=== PATIENT | male | born 1995 | race Caucasian/White ===

== ENCOUNTER 2025-02-26 19:54 | Emergency (ER) | payer BC, SELFPAY ==
[2025-02-26 20:07] VITALS: BP 113/83; PULSE 70; RESP 18; TEMP 36.7; O2SAT 100; BMI 41.1
[2025-02-26 20:35] VITALS: BP 134/100; PULSE 89; RESP 16; O2SAT 100
--- NOTE | 2025-02-26 20:42 | CTR_ITS ---
PROCEDURE INFORMATION: Exam: CT Abdomen And Pelvis With Contrast Exam date and time: 02/26/2025 9:00 PM Age: 29 years old Clinical indication: Abdominal pain; Generalized; Prior surgery; Surgery date: 6+ months; Surgery type: Gb; Additional info: Ruq pain, 4 years post cholecystectomy TECHNIQUE: Imaging protocol: Computed tomography of the abdomen and pelvis with contrast. Radiation optimization: All CT scans at this facility use at least one of these dose optimization techniques: automated exposure control; mA and/or kV adjustment per patient size (includes targeted exams where dose is matched to clinical indication); or iterative reconstruction. Contrast material: OMNIPAQUE 350; Contrast volume: 100 ml; Contrast route: INTRAVENOUS (IV); COMPARISON: No relevant prior studies available. RADIATION DOSE METRICS: Total DLP (mGy-cm): 1303.84 FINDINGS: Liver: Mild hepatic steatosis. The liver is enlarged, measuring 18.3 cm craniocaudal. Gallbladder and biliary ducts: Status post cholecystectomy. No biliary ductal dilatation. Pancreas: Fatty atrophy of the pancreas. No ductal dilatation. Spleen: Normal. No splenomegaly. 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 Kidneys and ureters: Normal. No hydronephrosis. Stomach and bowel: Unremarkable. No obstruction. No mucosal thickening. Appendix: No evidence of appendicitis. Intraperitoneal space: Unremarkable. No free air. No significant fluid collection. Vasculature: Unremarkable. No abdominal aortic aneurysm. Lymph nodes: Unremarkable. No enlarged lymph nodes. Urinary bladder: Unremarkable as visualized. Reproductive: Unremarkable as visualized. Bones/joints: Unremarkable. No acute fracture. Soft tissues: Bilateral fat containing inguinal hernias. CT/CT abdomen pelvis w con* [id number] IMPRESSION: 1. No acute findings in the abdomen/pelvis. 2. Mild hepatomegaly with hepatic steatosis. 3. Fatty atrophy of the pancreas.
[2025-02-26] MEDS: iohexol 350 mg/mL 500 mL Btl (per mL) IV (21:04)
[2025-02-26 21:05] LABS: Basophils % 0.3 %; Eosinophils # 0.1 10^3/uL (0.0-0.8); Eosinophils % 0.8 %; Lymphocytes # 2.8 10^3/uL (0.8-4.8); Lymphocytes % 27.5 %; Mean Corpuscular HGB Conc 33.4 g/dL (30-55); Mean Corpuscular Hemoglobin 26.9 pg (27-33); Mean Corpuscular Volume 80.5 fl (82-101); Mean Platelet Volume 10.1 fL (7.4-10.4); Monocytes # 0.8 10^3/uL (0.2-0.9); Monocytes % 7.7 %; Neutrophils # 6.37 10^3/uL (1.8-7.7); Neutrophils % 63.4 %; Nucleated Red Blood Cells % 0 %; Platelet Count 345 10^3/cmm (157-399); Red Blood Count 5.84 10^6/uL (3.85-5.65); Red Cell Distribution Width 13.6 % (12.1-15.1); White Blood Count 10.04 10^3/uL (3.29-11.43)
--- NOTE | 2025-02-26 21:21 | ED_ITS ---
HPI - Abdominal Pain 2 General: Chief Complaint: Abdominal Pain Stated Complaint: abdominal pain Time Seen by Provider: 02/26/25 20:33 History of Present Illness: Patient is a generally well-appearing 21-year-old male seen for right upper quadrant pain and 30 pounds unintentional weight loss. He states that several years ago he had his gallbladder removed but he still has pain in that right upper quadrant. It has been constant for the last several weeks. He said he decided to come the emergency department when he felt a lump in the right upper quadrant and wondered what it was. Pain is currently 8 of 10, throbbing, aching, but does not necessarily get worse with eating or drinking. He has no nausea or vomiting or diarrhea or fever or pain anywhere else in the abdomen. He states the right upper quadrant is tender to touch. He denies shortness of breath or chest pain. He has no other acute complaints. Related Data Allergies Allergy/AdvReac Type Severity Reaction Status Date / Time No Known Allergies Allergy Verified 02/26/25 20:12 Physical Exam 2 Const: COMMON NORMALS: no acute distress, patient oriented x3 and alert HENMT: COMMON NORMALS: normocephalic and atraumatic HEAD & SCALP: n ormocephalic and atraumatic Eye: COMMON NORMALS: Equal, round and reactive pupils present, EOMs intact bilaterally and no scleral icterus PUPIL: Yes Equal, round and reactive pupils present Resp: COMMON NORMALS: normal respiratory effort and No retractions Cardio: COMMON NORMALS: regular rate, regular rhythm and No murmurs present (Cardio) RATE: regular rate RHYTHM: regular rhythm GI: OTHER: Abdomen is soft and somewhat obese. Normal bowel sounds. Focal tenderness in the right upper quadrant. Negative [place] sign. I do not appreciate mass of the right upper quadrant as he states he feels. Neuro: COMMON NORMALS: patient oriented x3 SENSORIUM/ORIENTATION: Yes alert Skin: COMMON NORMALS: no rashes or lesions noted GENERAL SKIN EXAM: no rashes or lesions noted Course 2 Vital Signs: Vital signs: Vital Signs Temperature 98.0 F 02/26/25 20:07 Pulse Rate 78 02/26/25 23:08 Respiratory Rate 16 02/26/25 23:08 Blood Pressure 154/72 02/26/25 23:08 Pulse Oximetry 100 02/26/25 23:08 Oxygen Delivery Me thod Room Air 02/26/25 22:00 MDM - Abdominal Pain Medical Decision Making Patient remained hemodynamically stable throughout ED course. Labs and CT scan showed nothing acute. I do not suspect retained biliary duct stone, liver cancer, or any other emergent process warranting further workup at this time. His pain is not worse with eating or drinking. He will be discharged in stable condition follow-up primary care as needed. Lab Data 02/26/25 20:56 02/26/25 20:56 Labs/Radiology: Radiology Impressions Abdomen/Pelvis CT 02/26/25 20:42 IMPRESSION: 1. No acute findings in the abdomen/pelvis. 2. Mild hepatomegaly with hepatic steatosis. 3. Fatty atrophy of the pancreas. Laboratory Results WBC 10.04 10^3/uL (3.29-11.43) 02/26/25 20:56 RBC 5.84 10^6/uL (3.85-5.65) H 02/26/25 20:56 Hgb 15.70 g/dL (11.27-16.99) 02/26/25 20:56 Hct 47.0 % (37-53) 02/26/25 20:56 MCV 80.5 fl (82-101) L 02/26/25 20:56 MCH 26.9 pg (27-33) L 02/26/25 20:56 MCHC 33.4 g/dL (30-55) 02/26/25 20:56 RDW 13.6 % (12.1-15.1) 02/26/25 20:56 Plt Count 345 10^3/cmm (157-399) 02/26/25 20:56 MPV 10.1 fL (7.4-10.4) 02/26/25 20:56 Neut % (Auto) 63.4 % 02/26/25 20:56 Lymph % (Auto) 27.5 % 02/26/25 20:56 [place] % (Auto) 7.7 % 02/26/25 20:56 Eos % (Auto) 0.8 % 02/26/25 20:56 Baso % (Auto) 0.3 % 02/26/25 20:56 Neut # (Auto) 6.37 10^3/uL (1.8-7.7) 02/26/25 20:56 Lymph # (Auto) 2.8 10^3/uL (0.8-4.8) 02/26/25 20:56 [place] # (Auto) 0.8 10^3/uL (0.2-0.9) 02/26/25 20:56 Eos # (Auto) 0.1 10^3/uL (0.0-0.8) 02/26/25 20:56 Baso # (Auto) 0.0 10^3/uL (0.0-0.1) 02/26/25 20:56 Nucleated RBC % (auto) 0 % 02/26/25 20:56 Nucleated RBCs # 0.0 /100WBC 02/26/25 20:56 Sodium 136 mmol/L (136-145) 02/26/25 20:56 Potassium 3.4 mmol/L (3.5-5.1) L 02/26/25 20:56 Chloride 96 mmol/L (98-107) L 02/26/25 20:56 Carbon Dioxide 26 mmol/L (22-29) 02/26/25 20:56 Anion Gap 17.4 (5-19) 02/26/25 20:56 BUN 7 mg/dL (6-20) 02/26/25 20:56 Creatinine 0.7 mg/dL (0.7-1.2) 02/26/25 20:56 GFR Calculation 134.3 mL/min (90-130) H 02/26/25 20:56 Glucose 81 mg/dL (65-115) 02/26/25 20:56 Calculated Osmolality 279 mOsm/kg (285-295) L 02/26/25 20:56 Calcium 9.8 mg/dL (8.5-10.5) 02/26/25 20:56 Total Bilirubin 0.8 mg/dL (0.15-1.2) 02/26/25 20:56 AST 33 U/L (0-40) 02/26/25 20:56 ALT 64 U/L (0-41) H 02/26/25 20:56 Alkaline Phosphatase 103 U/L (40-130) 02/26/25 20:56 Total Protein 8.8 g/dL (6.6-8.7) H 02/26/25 20:56 Albumin 4.7 g/dL (3.5-5.2) 02/26/25 20:56 Globulin 4.1 g/dL (1.3-4.6) 02/26/25 20:56 Lipase 16 U/L (13-60) 02/26/25 20:56 All radiology interpretation(s) finalized by discharge Discharge Plan Discharge Patient Disposition: Home Clinical Impression: Abdominal pain, RUQ Condition: Stable Discharge Orders: Discharge ED (Routine); Ordered 02/26/25 Ordered By: Fazal Dawson Referrals: Polo Mcnally MD [Primary Care Provider] - Discharge Diet: Advance as tolerated Discharge Activity: Increase activity as tolerated Patient Instructions: Abdominal Pain (ED) Activity Restrictions/Additional Instructions: The liver measure 18.3 cm craniocaudal. Your liver enzymes today are very close to normal. Your blood work and CT scan did not show any evidence of acute process requiring hospitalization or surgery. There is no evidence of retained stone in the biliary duct. There is no visualized cancer, hernia, or mass. Print Language: Welsh Coding Level of Care Code ED Implementation Advisor for Betzy Barbour
[2025-02-26 21:26] LABS: Alanine Aminotransferase 64 U/L (0-41); Albumin Level 4.7 g/dL (3.5-5.2); Alkaline Phosphatase 103 U/L (40-130); Anion Gap 17.4 (5-19); Aspartate Amino Transferase 33 U/L (0-40); Blood Urea Nitrogen 7 mg/dL (6-20); Calcium 9.8 mg/dL (8.5-10.5); Carbon Dioxide 26 mmol/L (22-29); Chloride 96 mmol/L (98-107); Creatinine Clr Calc Pharmacy 200.1627; Globulin 4.1 g/dL (1.3-4.6); Glomerular Filtration Rate 134.3 mL/min (90-130); Glucose 81 mg/dL (65-115); Lipase 16 U/L (13-60); Osmolality Calculated 279 mOsm/kg (285-295); Potassium 3.4 mmol/L (3.5-5.1); Sodium 136 mmol/L (136-145); Total Bilirubin 0.8 mg/dL (0.15-1.2); Total Protein 8.8 g/dL (6.6-8.7)
[2025-02-26 22:00] VITALS: BP 209/93; PULSE 68; RESP 16; O2SAT 99
[2025-02-26 23:08] VITALS: BP 154/72; PULSE 78; RESP 16; O2SAT 100
== END 2025-02-26 23:10 | disposition home or self-care (01) ==
PROVIDERS: Emergency Provider Student in an Organized Health Care Education/Training Program; PCP Family Medicine
DX: R10.11 Right upper quadrant pain (principal)
CPT/HCPCS: 36415; 74177; 80053; 83690; 85025; 99285